=== PATIENT | male | born 1980 | race African-American/Black ===

== ENCOUNTER 2016-05-02 11:45 | Emergency (ER) | payer SELFPAY ==
[2016-05-02 12:01] VITALS: BP 109/67
--- NOTE | 2016-05-02 12:03 | ER Document Report ---
ED Medical Screen (RME) - General Stated Complaint: EYE PAIN Time seen by provider: 12:01 Mode of Arrival: Ambulatory Information source: Patient TRAVEL OUTSIDE OF THE [place] IN LAST 30 DAYS: No - HPI Patient complains to provider of: FEELS LIKE SOMETHING IS IN BOTH EYES Onset: Yesterday Onset/Duration: Sudden Context: FEELS LIKE SAND OR SOMETHING IN HIS EYES, RIGHT MORE THAN LEFT. VISION BLURRY RIGHT EYE Quality of pain: Burning, Other - SCRATCHY Severity: Moderate Pain Level: 4 Associated Symptoms: None Exacerbated by: Denies Relieved by: Denies Similar symptoms previously: No Recently seen / treated by doctor: No - Related Data Smoking: Cigarettes Frequency of alcohol use: None Drug Abuse: None Allergies/Adverse Reactions: No Known Allergies Allergy (Verified 05/02/16 12:01) Past Medical History GI Medical History: Reports: Hx Gastroesophageal Reflux Disease Past Surgical History: Reports: Hx Testicular Surgery - Secondary to torsion - Immunizations Immunizations up to date: No Hx Diphtheria, Pertussis, Tetanus Vaccination: No Physical Exam - Vital signs Vitals: Temp Pulse Resp BP Pulse Ox 97.9 F 66 16 109/67 97 05/02/16 12:00 05/02/16 12:00 05/02/16 12:00 05/02/16 12:00 05/02/16 12:00 Course - Vital Signs Vital signs: Temp Pulse Resp BP Pulse Ox 97.9 F 66 16 109/67 97 05/02/16 12:00 05/02/16 12:00 05/02/16 12:00 05/02/16 12:00 05/02/16 12:00
[2016-05-02] MEDS ORDERED: TETRACAINE HCL 0.5% OPH SOLN 2 ML OU ONE (13:03)
[2016-05-02] MEDS ORDERED: TETRACAINE HCL 0.5% OPH SOLN 2 ML ONE (13:04)
--- NOTE | 2016-05-02 13:21 | ER Document Report ---
ED General - General Chief Complaint: Eye Pain Stated Complaint: EYE PAIN Mode of Arrival: Ambulatory Information source: Patient Notes: 36 yr old male presents with complaints of bilateral eye irritation after he got dust in it yesterday, patient has been playing with his eye since denies any other injuries TRAVEL OUTSIDE OF THE [place] IN LAST 30 DAYS: No - HPI Onset: Yesterday Onset/Duration: Persistent Quality of pain: Sharp Severity: Mild Pain Level: 2 Associated symptoms: Other Exacerbated by: Denies Relieved by: Denies Similar symptoms previously: No Recently seen / treated by doctor: No - Related Data Allergies/Adverse Reactions: No Known Allergies Allergy (Verified 05/02/16 12:01) Past Medical History - General Information source: Patient - Social History Smoking Status: Current Every Day Smoker Cigarette use (# per day): No Chew tobacco use (# tins/day): No Smoking Education Provided: No Frequency of alcohol use: None Drug Abuse: None Family History: Reviewed & Not Pertinent Patient has suicidal ideation: No Patient has homicidal ideation: No Renal/ Medical History: Denies: Hx Peritoneal Dialysis GI Medical History: Reports: Hx Gastroesophageal Reflux Disease Past Surgical History: Reports: Hx Testicular Surgery - Secondary to torsion - Immunizations Immunizations up to date: No Hx Diphtheria, Pertussis, Tetanus Vaccination: No Review of Systems - Review of Systems Notes: REVIEW OF SYSTEMS: CONSTITUTIONAL : Denies fever, chills, or sweats. Denies recent illness. EENT: Admits to bilateral eye irritation CARDIOVASCULAR: Denies chest pain. Denies palpitations or racing or irregular heart beat. Denies ankle edema. RESPIRATORY: Denies cough, cold, or chest congestion. Denies shortness of breath, difficulty breathing, or wheezing. GASTROINTESTINAL: Denies abdominal pain or distention. Denies nausea, vomiting , or diarrhea. Denies blood in vomitus, stools, or per rectum. Denies black, tarry stools. Denies constipation. GENITOURINARY: Denies difficulty urinating, painful urination, burning, frequency, blood in urine, or discharge. MUSCULOSKELETAL: Denies back or neck pain or stiffness. Denies joint pain or swelling. SKIN: Denies rash, lesions or sores. HEMATOLOGIC : Denies easy bruising or bleeding. LYMPHATIC: Denies swollen, enlarged glands. NEUROLOGICAL: Denies confusion or altered mental status. Denies passing out or loss of consciousness. Denies dizziness or lightheadedness. Denies headache. Denies weakness or paralysis or loss of use of either side. Denies problems with gait or speech. Denies sensory loss, numbness, or tingling. Denies seizures. PSYCHIATRIC: Denies anxiety or stress. Denies depression, suicidal ideation, or homicidal ideation. ALL OTHER SYSTEMS REVIEWED AND NEGATIVE. Dictation was performed using [employer] voice recognition software PHYSICAL EXAMINATION: GENERAL: Well-appearing, well-nourished and in no acute distress. HEAD: Atraumatic, normocephalic. EYES: Pupils equal round and reactive to light, extraocular movements intact, sclera anicteric, conjunctiva are injected bilateral, with Flourescein strip there is multiple superficial abrasions negative Bryn sign ENT: Nares patent, oropharynx clear without exudates. Moist mucous membranes. NECK: Normal range of motion, supple without lymphadenopathy LUNGS: Breath sounds clear to auscultation bilaterally and equal. No wheezes rales or rhonchi. HEART: Regular rate and rhythm without murmurs ABDOMEN: Soft, nontender, nondistended abdomen. No guarding, no rebound. No masses appreciated. Musculoskeletal: Normal range of motion, no pitting or edema. No cyanosis. NEUROLOGICAL: Cranial nerves grossly intact. Normal speech, normal gait. Normal sensory, motor exams PSYCH: Normal mood, normal affect. SKIN: Warm, Dry, normal turgor, no rashes or lesions noted. Physical Exam - Vital signs Vitals: Temp Pulse Resp BP Pulse Ox 97.9 F 66 16 109/67 97 05/02/16 12:00 05/02/16 12:00 05/02/16 12:00 05/02/16 12:00 05/02/16 12:00 - HEENT Visual acuity- Right eye: 20/40 Visual acuity- Left eye: 20/25 Visual acuity- Both eyes: 20/20 Corrective lenses worn: Yes Course - Re-evaluation Re-evalutation: 05/02/16 13:29 There is multiple corneal abrasions noted, I would reflect a small speck of dust was noted on the right upper eyelid nothing under the left upper eyelid. Patient noted significant improvement with the medication. He'll be discharged home with antibiotics for his corneal abrasions Tetanus is up-to-date After performing a Medical Screening Examination, I estimate there is LOW risk for a RETAINED CORNEAL or LID FOREIGN BODY, DEEP SPACE INFECTION (e.g., ORBITAL CELLULITIS OR ABSCESS), ACUTE GLAUCOMA, PENETRATING GLOBE INJURY, RETINAL DETACHMENT, or MENINGITIS thus I consider the discharge disposition reasonable. Also, there is no evidence or peritonitis, sepsis, or toxicity. The patient and I have discussed the diagnosis and risks, and we agree with discharging home with outpatient follow-up with the understanding that symptoms and presentations can change. We also discussed returning to the Emergency Department immediately if new or worsening symptoms occur. We have discussed the symptoms which are most concerning (e.g., changing or worsening pain, vision changes, neck stiffness or fever) that necessitate immediate return. - Vital Signs Vital signs: Temp Pulse Resp BP Pulse Ox 97.9 F 66 16 109/67 97 05/02/16 12:00 05/02/16 12:00 05/02/16 12:00 05/02/16 12:00 05/02/16 12:00 Discharge - Discharge Clinical Impression: Corneal abrasion of both eyes Qualifiers: Encounter type: initial encounter Qualified Code(s): S05.01XA - Injury of conjunctiva and corneal abrasion without foreign body, right eye, initial encounter; S05.02XA - Injury of conjunctiva and corneal abrasion without foreign body, left eye, initial encounter Condition: Stable Disposition: HOME, SELF-CARE Instructions: Corneal Abrasion ([facility]) Additional Instructions: Please use safety goggles or glasses while at work Prescriptions: Ciprofloxacin HCl [Ciloxan 0.3% Oph Soln 2.5 ml] 2 drop OU Q6 7 Days Hydrocodone/Acetaminophen [Regent 5-325 mg Tablet] 1 tab PO Q6 #14 tablet Referrals: BRENT EUCEDA MD [ACTIVE STAFF] - Follow up in 3-5 days
== END 2016-05-02 13:52 | disposition home or self-care (01) ==
LOC: ER 11:45
DX: S05.02XA Injury of conjunctiva and corneal abrasion without foreign body, left eye, initial encounter (principal); S05.01XA Injury of conjunctiva and corneal abrasion without foreign body, right eye, initial encounter; X58.XXXA Exposure to other specified factors, initial encounter; F17.200 Nicotine dependence, unspecified, uncomplicated
CPT/HCPCS: 99283

== ENCOUNTER 2018-06-24 20:06 | Emergency (ER) | payer SELFPAY ==
[2018-06-24] MEDS ORDERED: ACETAMINOPHEN 325 MG TABLET PO ONE (22:25)
--- NOTE | 2018-06-24 22:27 | ER Document Report ---
ED Medical Screen (RME) - General Chief Complaint: Fever Stated Complaint: CHILLS AND PAINS Time Seen by Provider: 06/24/18 22:24 Notes: 38-year-old male chief complaint of cough initially and now he is fever and chills with a cough. Denies sore throat, congestion, headache, abdominal pain, vomiting. Denies smoking, daily medications, diagnosed medical problems. Has not had influenza vaccine. TRAVEL OUTSIDE OF THE [place] IN LAST 30 DAYS: No - Related Data Allergies/Adverse Reactions: No Known Allergies Allergy (Verified 05/02/16 12:01) Past Medical History Renal/ Medical History: Denies: Hx Peritoneal Dialysis GI Medical History: Reports: Hx Gastroesophageal Reflux Disease Past Surgical History: Reports: Hx Testicular Surgery - Secondary to torsion - Immunizations Immunizations up to date: No Hx Diphtheria, Pertussis, Tetanus Vaccination: No Physical Exam - Vital signs Vitals: Temp Pulse Resp BP Pulse Ox 100.6 F H 88 17 127/84 H 100 06/24/18 20:14 06/24/18 20:14 06/24/18 20:14 06/24/18 20:14 06/24/18 20:14 - Respiratory Respiratory status: No: Respiratory distress, Labored Breath sounds: Nonproductive cough Course - Re-evaluation Re-evalutation: I have greeted and performed a rapid initial assessment of this patient. A comprehensive ED assessment and evaluation of the patient, analysis of test results and completion of the medical decision making process will be conducted by additional ED providers. - Vital Signs Vital signs: Temp Pulse Resp BP Pulse Ox 100.6 F H 88 17 127/84 H 100 06/24/18 20:14 06/24/18 20:14 06/24/18 20:14 06/24/18 20:14 06/24/18 20:14
--- NOTE | 2018-06-24 22:56 | RADIOLOGY REPORT (SQ) ---
EXAM DESCRIPTION: XR CHEST 2 VIEWS COMPLETED DATE/TME: 06/24/2018 22:25 CLINICAL HISTORY: 38 years Male, cough, fevers COMPARISON: None. NUMBER OF VIEWS/TECHNIQUE: 2, Frontal, Lateral FINDINGS: Adequate lung volume, clear parenchyma, normal cardiac silhouette, and small deformity of the right sixth posterior rib indicative of prior injury. IMPRESSION: No acute cardiopulmonary findings.
--- NOTE | 2018-06-25 00:36 | ER Document Report ---
HPI - HPI Time Seen by Provider: 06/24/18 22:24 Pain Level: 4 Notes: Patient is a 38-year-old male who presents to the ED complaining of nasal congestion/discharge, dry nonproductive cough, fever, body ache 2 days. Patient states that he is still eating and drinking without difficulties, but does have a decreased p.o. intake. He is still urinating normally having normal bowel movements. Patient has been using some [id number] meds for symptoms. He denies any significant past medical history including cardiopulmonary history and immunocompromised conditions. Patient requesting work note. Denies any current headache, neck pain, sore throat, chest pain, palpitations, syncope, shortness of breath, wheeze, dyspnea, abdominal pain, nausea/vomiting/diarrhea, urinary retention, dysuria, hematuria, or rash. - ROS Systems Reviewed and Negative: Yes All other systems reviewed and negative - CONSTITUTIONAL Constitutional: REPORTS: Fever, Chills - EENT EENT: REPORTS: Sore Throat - NEURO Neurology: REPORTS: Headache, Weakness - RESPIRATORY Respiratory: REPORTS: Coughing - GASTROINTESTINAL Gastrointestinal: REPORTS: Abdominal Pain Past Medical History - Social History Smoking Status: Current Every Day Smoker Family History: Reviewed & Not Pertinent Patient has suicidal ideation: No Patient has homicidal ideation: No Renal/ Medical History: Denies: Hx Peritoneal Dialysis GI Medical History: Reports: Hx Gastroesophageal Reflux Disease Past Surgical History: Reports: Hx Testicular Surgery - Secondary to torsion - Immunizations Immunizations up to date: No Hx Diphtheria, Pertussis, Tetanus Vaccination: No Vertical Provider Document - CONSTITUTIONAL Agree With Documented VS: Yes Notes: PHYSICAL EXAMINATION: GENERAL: Well-appearing, well-nourished and in no acute distress. A&Ox4. Answers questions appropriately. Moves comfortably w/o notable distress HEAD: Atraumatic, normocephalic. EYES: Pupils equal round and reactive to light, extraocular movements intact, sclera anicteric, conjunctiva are normal. ENT: EAC clear b/l. TM's intact b/l without erythema, fluid, or perforation. Nares patent and with clear discharge. oropharynx no erythema without exudates. No tonsilar hypertrophy without erythema or exudate. No palatine shift. Uvula midline. No tongue protrusion. No drooling, hoarseness, or airway compromise. Moist mucous membranes. No sinus tenderness. NECK: Normal range of motion, supple without lymphadenopathy. No rigidity/meningismus. Kernig/Brudzinski negative LUNGS: Breath sounds clear to auscultation bilaterally and equal. No wheezes rales or rhonchi. No retractions HEART: Regular rate and rhythm without murmurs, rubs, gallops. ABDOMEN: Soft, nontender, nondistended abdomen. No guarding, no rebound. Normal bowel sounds present. No CVA tenderness bilaterally. NEUROLOGICAL: Normal speech, normal gait. PSYCH: Normal mood, normal affect. SKIN: Warm, Dry, normal turgor, no rashes or lesions noted. - INFECTION CONTROL TRAVEL OUTSIDE OF THE [place] IN LAST 30 DAYS: No Course - Re-evaluation Re-evalutation: 06/25/18 Patient is an afebrile, well-hydrated, 38 year-old male who presents to the ED with acute URI, suspect viral/influenza. Vitals are acceptable. PE is otherwise unremarkable. Chest x-ray unremarkable. Influenza test was negative, but is only approximately 50% sensitive. No other labs or imaging warranted at this time based on H&P. Patient has no significant cardiopulmonary or immunocompromised medical conditions. Patient's lungs are clear to auscultation bilaterally without tachycardia, hypoxia, or tachypnea. Patient is tolerating p.o. without any difficulties. Thoroughly reviewed the risks, benefits, potential side effects, estimated cost without insurance with patient. After thorough review, patient declined Tamiflu at this time. Low suspicion for any meningitis, sepsis, peritonsillar/pharyngeal abscess, respiratory compromise, severe dehydration, or other emergent systemic condition at this time. Patient is aware this condition can change from initial presentation and he needs to monitor symptoms closely. Conservative measures otherwise for symptoms. Recheck with your PCM in 2-3 days. Return to the ED with any worsening/concerning symptoms otherwise as reviewed in discharge. Patient is in agreement. - Vital Signs Vital signs: Temp Pulse Resp BP Pulse Ox 100.6 F H 88 17 127/84 H 100 06/24/18 20:14 06/24/18 20:14 06/24/18 20:14 06/24/18 20:14 06/24/18 20:14 Discharge - Discharge Clinical Impression: Acute URI Fever Qualifiers: Fever type: unspecified Qualified Code(s): R50.9 - Fever, unspecified Condition: Stable Disposition: HOME, SELF-CARE Instructions: Fever ([facility]), Upper Respiratory Illness ([facility]), Viral Syndrome ([facility]) Additional Instructions: Maintain adequate fluid intake Take meds as directed tylenol/ibuprofen as needed over the counter cold medication as needed for symptoms Humidified air may help Wash your hands regularly Wear a mask when coughing F/u: with your PCM in 2-3 days for a recheck Return to the ED with any fever, worsening pain, chest pain, palpitations, syncope, worsening SOMMERS, neck pain/stiffness, shortness of breath, wheezing, drooling, trouble swallowing/breathing, abdominal pain, n/v/d, rash, or worsening/concerning symptoms otherwise. Forms: Elevated Blood Pressure, Smoking Cessation Education, Return to Work Referrals: [facility] [Provider Group] - Follow up as needed
[2018-06-25 00:43] LABS: A TYPE INFLUENZA AG NEGATIVE (NEGATIVE); B INFLUENZA AG NEGATIVE (NEGATIVE)
[2018-06-25 01:21] VITALS: BP 127/77
== END 2018-06-25 01:22 | disposition home or self-care (01) ==
LOC: ER 20:06
DX: J06.9 Acute upper respiratory infection, unspecified (principal); R50.9 Fever, unspecified; R05 Cough; J02.9 Acute pharyngitis, unspecified; R10.9 Unspecified abdominal pain; F17.200 Nicotine dependence, unspecified, uncomplicated
CPT/HCPCS: 71046; 87804; 99283

== ENCOUNTER 2019-10-06 19:06 | Emergency (ER) | payer SELFPAY ==
[2019-10-06 19:44] VITALS: BP 107/71
[2019-10-06] MEDS ORDERED: CYCLOBENZAPRINE HCL 10 MG TABLET PO ONE (20:07)
--- NOTE | 2019-10-06 20:13 | ER Document Report ---
HPI - HPI Patient complains to provider of: Back Pain Time Seen by Provider: 10/06/19 20:02 Pain Level: 4 Context: 39-year-old male no previous medical problems presents the emergency room complaining of left lower back pain that started yesterday after lifting a 5 gallon bucket at work. States he occasionally has back issues that is usually relieved with heat. He denies any loss of control over bowels or bladder. Denies any radiation of pain. Denies any saddle anesthesia. No red flags. States he has not tried heat as of yet. Has not taken any medications for pain. Associated Symptoms: None Exacerbated by: Movement Relieved by: Denies Similar symptoms previously: Yes - Occasional back pain Recently seen / treated by doctor: No - ROS Systems Reviewed and Negative: Yes All other systems reviewed and negative - NEURO Neurology: DENIES: Weakness - RESPIRATORY Respiratory: DENIES: Trouble Breathing - GASTROINTESTINAL Gastrointestinal: DENIES: Abdominal Pain, Nausea, Patient vomiting - URINARY Urinary: DENIES: Dysuria - MUSCULOSKELETAL Musculoskeletal: REPORTS: Back Pain - DERM Skin Color: Normal Skin Problems: None Past Medical History - General Information source: Patient - Social History Smoking Status: Current Every Day Smoker Frequency of alcohol use: None Drug Abuse: None Family History: Reviewed & Not Pertinent Renal/ Medical History: Denies: Hx Peritoneal Dialysis GI Medical History: Reports: Hx Gastroesophageal Reflux Disease Past Surgical History: Reports: Hx Testicular Surgery - Secondary to torsion - Immunizations Immunizations up to date: No Hx Diphtheria, Pertussis, Tetanus Vaccination: No Vertical Provider Document - CONSTITUTIONAL Agree With Documented VS: Yes Exam Limitations: No Limitations General Appearance: Mild Distress - INFECTION CONTROL TRAVEL OUTSIDE OF THE [place] IN LAST 30 DAYS: No - HEENT HEENT: Atraumatic, Normocephalic - NECK Neck: Normal Inspection, Supple, Thyroid Normal - RESPIRATORY Respiratory: Breath Sounds Normal, No Respiratory Distress, Chest Non-Tender - CARDIOVASCULAR Cardiovascular: Regular Rate, Regular Rhythm, No Murmur - GI/ABDOMEN Gastrointestinal: Abdomen Soft, Abdomen Non-Tender. negative: Abdominal Guarding, Abdominal Rebound, No Organomegaly - BACK Back: negative: CVA Tenderness-Right, CVA Tenderness-Left - MUSCULOSKELETAL/EXTREMETIES Musculoskeletal/Extremeties: Tender - Nontender to palpation over the thoracic and/or vertebral spine areas. There is tenderness over the left sciatic notch. There is muscle spasms noted in the lower lumbar region. There is no step-offs. No obvious deformity noted. Negative straight leg raising bilaterally - NEURO Level of Consciousness: Awake, Alert, Appropriate Motor/Sensory: No Motor Deficit, No Sensory Deficit Deep Tendon Reflexes: 2+ Notes: Reflexes equal and adequate to bilateral patellas. He is ambulatory with a steady gait. He is neurovascular intact. - DERM Integumentary: Warm, Dry, No Rash Course - Re-evaluation Re-evalutation: 10/06/19 20:13 Patient was counseled on need to take medications as prescribed. Use Tylenol and/or Motrin as needed for pain. He is neurovascular intact. He is ambulatory with a steady gait. Patient was given a dose of Flexeril here. He will be discharged home on Flexeril as prescribed. He was counseled on need to follow- up with his employer through Worker's [employer]. if he is unable to return to work. Patient was given strict return to the emergency room guidelines. Return for any new or worsening symptoms. All questions were answered. Patient verbalized understanding and agrees with plan of care. - Vital Signs Vital signs: Temp Pulse Resp BP Pulse Ox 99.1 F 67 16 107/71 97 10/06/19 19:42 10/06/19 19:42 10/06/19 19:42 10/06/19 19:42 10/06/19 19:42 Discharge - Discharge Clinical Impression: Lumbar strain Qualifiers: Encounter type: initial encounter Qualified Code(s): S39.012A - Strain of muscle, fascia and tendon of lower back, initial encounter Condition: Stable Disposition: HOME, SELF-CARE Instructions: Low Back Pain ([facility]), Muscle Strain ([facility]), Warm Packs ([facility]) Additional Instructions: You have been seen in the Emergency Department (ED) today for back pain. Your workup and exam have not shown any acute abnormalities and you are likely suffering from muscle strain or possible problems with your discs, but there is no treatment that will fix your symptoms at this time. Please take the Flexeril that has been prescribed as directed. Can also take Tylenol and/or Motrin as needed for pain. You should also purchase a local lidocaine cream such as " aspercreme with lidocaine" and use per bottle instructions to the affected area. Apply heat to the area as often as you are able. Continue to keep active and avoid prolonged periods of bed rest. Please follow up with your employer for referral to Worker's Comp. as soon as possible regarding today's ED visit and your back pain if you are unable to return to work. Return to the ED for worsening back pain, fever, weakness or numbness of either leg, or if you develop either (1) an inability to urinate or have bowel movements, or (2) loss of your ability to control your bathroom functions (if you start having "accidents"), or if you develop other new symptoms that concern you.concern you. Prescriptions: Cyclobenzaprine HCl [Flexeril 10 mg Tablet] 10 mg PO TIDP PRN #15 tab PRN Reason: Forms: Return to Work
== END 2019-10-06 20:20 | disposition home or self-care (01) ==
LOC: ER 19:06
DX: S39.012A Strain of muscle, fascia and tendon of lower back, initial encounter (principal); F17.200 Nicotine dependence, unspecified, uncomplicated; X50.0XXA Overexertion from strenuous movement or load, initial encounter; Y99.0 Civilian activity done for income or pay
CPT/HCPCS: 99283

== ENCOUNTER 2019-10-09 12:21 | Emergency (ER) | payer SELFPAY ==
[2019-10-09 12:25] VITALS: BP 119/69
--- NOTE | 2019-10-09 13:03 | ER Document Report ---
HPI - HPI Time Seen by Provider: 10/09/19 12:55 Pain Level: 3 Notes: CHIEF COMPLAINT: Work note HPI: 39-year-old male presenting to the emergency department requesting a work note for 2 more days off of work because of a back injury sustained at work 3 days ago. Patient was lifting a bucket and injured the left lower back. States he was seen in the emergency department 3 days ago for this was given a 2-day work note but feels like he needs another 2 days for his back to improve. Has not yet filed a claim through Workmen's Compensation and has not yet followed up with a primary care provider for evaluation of his injury. ROS: See HPI - all other systems were reviewed and are otherwise negative Constitutional: no fever : no dysuria Integumentary: no rash Allergy: no hives Musculoskeletal: Positive back pain Neurological: no numbness/tingling, no weakness MEDICATIONS: I agree with the patient medications as charted by the RN. ALLERGIES: I agree with the allergies as charted by the RN. PAST MEDICAL HISTORY/PAST SURGICAL HISTORY: Reviewed and agree as charted by RN. SOCIAL HISTORY: Reviewed and agree as charted by RN. FAMILY HISTORY: No significant familial comorbid conditions directly related to patient complaint EXAM: Reviewed vital signs as charted by RN. CONSTITUTIONAL: Alert and oriented and responds appropriately to questions. Well-appearing; well-nourished HEAD: Normocephalic; atraumatic EYES: Conjunctivae clear, sclerae non-icteric ENT: normal nose; no rhinorrhea; moist mucous membranes NECK: Supple without meningismus CARD: symmetric distal pulses RESP: Normal chest excursion without splinting or tachypnea ABD/GI: non-distended BACK: The back appears normal and is non-tender to palpation directly over the lumbar spine. There is mild tenderness in the left lateral lumbar musculature on palpation, there is no CVA tenderness EXT: Normal ROM in all joints; non-tender to palpation; no cyanosis, no effusions, no edema SKIN: Normal color for age and race; warm; dry; good turgor; no acute lesions noted NEURO: Moves all extremities equally; Motor and sensory function intact. Strength equal 5/5 bilateral lower extremities. Sensation intact and equal bilateral lower extremities. Straight leg raise is negative. No saddle anesthesia on exam. DTRs 2+ intact and equal bilateral lower extremities. PSYCH: The patient's mood and manner are appropriate. Grooming and personal hygiene are appropriate. MDM: 39-year-old male essentially presenting for a work note after back injury 3 days ago. Neurologically intact. He has medications for pain at home. Will give patient work note for 2 more days told him to follow-up with Workmen's Compensation or orthopedics Past Medical History - Social History Smoking Status: Current Some Day Smoker Frequency of alcohol use: None Drug Abuse: None Family History: Reviewed & Not Pertinent Renal/ Medical History: Denies: Hx Peritoneal Dialysis GI Medical History: Reports: Hx Gastroesophageal Reflux Disease Past Surgical History: Reports: Hx Testicular Surgery - Secondary to torsion - Immunizations Immunizations up to date: No Hx Diphtheria, Pertussis, Tetanus Vaccination: No Vertical Provider Document - INFECTION CONTROL TRAVEL OUTSIDE OF THE [place] IN LAST 30 DAYS: No Course - Vital Signs Vital signs: Temp Pulse Resp BP Pulse Ox 98.5 F 62 18 119/69 99 10/09/19 12:24 10/09/19 12:24 10/09/19 12:24 10/09/19 12:24 10/09/19 12:24 Discharge - Discharge Clinical Impression: Low back pain Qualifiers: Chronicity: acute Back pain laterality: left Sciatica presence: without sciatica Qualified Code(s): M54.5 - Low back pain Condition: Stable Disposition: HOME, SELF-CARE Instructions: Low Back Pain ([facility]) Additional Instructions: Continue previous medications for pain. Warm heat to the low back. Follow-up through Workmen's Compensation or with orthopedics for further evaluation and treatment call for appointment Forms: Return to Work
== END 2019-10-09 13:04 | disposition home or self-care (01) ==
LOC: ER 12:21
DX: M54.5 Low back pain (principal); X50.9XXA Other and unspecified overexertion or strenuous movements or postures, initial encounter; F17.200 Nicotine dependence, unspecified, uncomplicated
CPT/HCPCS: 99281